=== PATIENT | female | born 1995 | race African-American/Black ===

== ENCOUNTER 2018-10-24 09:51 | Day surgery (SDC) | payer OTHER ==
[2018-10-04 12:48] LABS: HEMATOCRIT 39.1 % (36.0-47.0); HEMOGLOBIN 13.2 g/dL (12.0-15.5); MEAN CORPUSCULAR HEMOGLOBIN 30.2 pg (27.0-33.4); MEAN CORPUSCULAR HGB CONC 33.7 g/dL (32.0-36.0); MEAN CORPUSCULAR VOLUME 90 fl (80-97); PLATELET COUNT 226 10^3/uL (150-450); RED BLOOD COUNT 4.36 10^6/uL (3.72-5.28); RED CELL DISTRIBUTION WIDTH 14.5 % (11.5-14.0); WHITE BLOOD COUNT 8.1 10^3/uL (4.0-10.5)
[2018-10-04 12:48] LABS: APPEARANCE,URINE CLEAR; BILIRUBIN,URINE NEGATIVE (NEGATIVE); COLOR,URINE STRAW; GLUCOSE, URINE NEGATIVE (NEGATIVE); KETONES,URINE NEGATIVE (NEGATIVE); LEUKOCYTE ESTERASE,URINE MODERATE (NEGATIVE); NITRITE,URINE NEGATIVE (NEGATIVE); PROTEIN,URINE NEGATIVE (NEGATIVE); UROBILINOGEN,URINE NEGATIVE mg/dL (<2.0)
[~2018-10-24 09:51] MED LIST: LACTATED RINGERS 1000 ML IV PRN; LIDOCAINE 0.5% INJ-PF (5 MG/ML) 50 ML SDV SUBCUT PRN
[2018-10-24] MEDS ORDERED: BUPIVACAINE HCL 0.25 % INJ/PF (2.5 MG/1 ML) 30 ML VIAL ONE (10:28)
[2018-10-24] MEDS ORDERED: MIDAZOLAM 2 MG/2 ML INJ ONE (10:38)
[2018-10-24] MEDS ORDERED: FENTANYL CITRATE INJ/PF 250 MCG/5 ML AMPULE ONE (10:38)
[2018-10-24] MEDS ORDERED: HYDROMORPHONE HCL INJ/PF 2 MG/ML AMPULE ONE (10:38)
[2018-10-24] MEDS ORDERED: PROPOFOL INJ 200 MG/20 ML VIAL IV ONE (10:39)
[2018-10-24] MEDS ORDERED: MORPHINE SULFATE 10 MG/ML INJ IV PRN (11:27)
[2018-10-24] MEDS ORDERED: DIPHENHYDRAMINE HCL 50 MG/ML VIAL IV PRN (11:27)
[2018-10-24] MEDS ORDERED: PROMETHAZINE HCL INJ 25 MG/1 ML VIAL IV PRN (11:27)
[2018-10-24] MEDS ORDERED: MEPERIDINE HCL/PF INJ 25 MG/1 ML DISP.SYRIN IV PRN (11:27)
[2018-10-24] MEDS ORDERED: FENTANYL CITRATE INJ/PF 100 MCG/2 ML AMPUL IV PRN ×3 (11:27)
--- NOTE | 2018-10-24 12:29 | OPERATIVE REPORT E ---
Operative Report NAME: YINA LUDWIG : 1995 AGE: 23Y DATE OF SURGERY: 10/24/2018 ROOM: PREOPERATIVE DIAGNOSIS: ENDOMETRIOSIS. POSTOPERATIVE DIAGNOSIS: ENDOMETRIOSIS. OPERATION: Diagnostic laparoscopy with excision and fulguration of endometriosis and pelvic biopsies. SURGEON: TAWANNA LUA M.D. PRODUCTION LABORER: Yasmeen Carlson, first helper computer hardware technician. ANESTHESIA: Dr. Christopher Garcia with general. FINDINGS: Small amount of endometriosis on the left uterosacral ligament, minuscule powder burn marking noted just lateral of the right uterosacral ligament. COMPLICATIONS: None. ESTIMATED BLOOD LOSS: 10 mL TISSUE REMOVED OR ALTERED: Pelvic biopsy x2 from the left pelvic sidewall and uterosacral ligament. PROCEDURE: The patient was taken to the operating room, prepared and draped in a normal sterile fashion in the dorsal lithotomy position. Under sterile conditions an in-and out-cath was performed of approximately 20 mL of clear urine. A sterile speculum was then placed in the vagina. The cervix was grasped on the anterior lip with a single-tooth tenaculum and the cervix was prepped with Betadine. The Hulka clamp was then placed through the cervix for uterine manipulation. The tenaculum and speculum were then removed. Gloves were changed and attention was turned to the upper portion of the case where an umbilical skin incision was made to accommodate a 5 mm port and a Veress needle was introduced through these incisions. Peritoneal cavity placement was confirmed with free flow of sterile water through the Veress needle and the abdomen was then inflated with approximately 2 liters of CO2 gas. The Veress needle was then removed and the 5 mm port was then placed through this incision. The camera was introduced and the patient was placed in steep trendelenburg with the above findings noted. Under direct visualization, 2 more 5 mm ports were placed on either side of the umbilicus approximately 10 cm from the umbilicus. The atraumatic grasper was introduced and the bowel was swept away. The abdomen was inspected. The liver was normal. There were no lesions found on the bowel. The appendix was not visualized but there did not appear to be any other lesions noted. The bladder was inspected and found to be free of endometriosis lesions and the only lesions that were noted were these on the left uterosacral ligament. We then proceeded with excision of the biopsies. Atraumatic grasper was used and 1 biopsy was removed from the left uterosacral ligament. Another biopsy was a little bit tougher so the Nolvia was introduced in and the EndoSure's were used to excise the peritoneum from this site. These specimens were then removed from the field and the rest of the lesions were fulgurated with the EndoSure's without difficulty. Once we felt that we had fulgurated all of the visible lesions, the instruments were removed. The ovaries were reinspected and found to be normal. The right ovary did have a small follicular cyst on this but it was clear and benign in appearance with no evidence of being an endometrioma so this was left as is. The abdomen was reinspected and no further lesions were noted and no further pathology was noted. At this point, the case was concluded. The instruments were removed. The abdomen was deflated through the umbilical port. The trocars were all 3 removed and the skin was closed at the 3 sites using 4-0 Vicryl. Patient tolerated the procedure well. Sponge, lap, and needle counts were correct x2. The Hulka clamp was removed at the conclusion of the case and the patient was taken to recovery in stable condition. DICTATING PHYSICIAN: TAWANNA LUA M.D. [id number] PHY#: [id number] ID: [id number] JOB#: [id number] ACCT: [id number] cc:TAWANNA LUA M.D. >
[2018-10-24] MEDS ORDERED: MORPHINE SULFATE 10 MG/ML INJ IM PRN (13:06)
[2018-10-24] MEDS ORDERED: OXYCODONE-ACETAMINOPHEN 5-325 MG TABLET PO PRN ×2 (13:07→13:08)
[2018-10-24] MEDS ORDERED: IBUPROFEN 800 MG TABLET PO PRN (13:07)
[2018-10-24] MEDS ORDERED: ONDANSETRON HCL INJ/PF 4 MG/2 ML SDV ONE ×2 (13:37→19:11)
[2018-10-24 14:14] VITALS: BP 122/59
[2018-10-24] MEDS ORDERED: DEXAMETHASONE SOD PHOSPHATE INJ 4 MG/1 ML VIAL ONE (19:11)
[2018-10-24] MEDS ORDERED: ROCURONIUM BROMIDE INJ 50 MG/5 ML VIAL IV ONE (19:11)
[2018-10-24] MEDS ORDERED: NEOSTIGMINE METHYLSULFATE 10 MG/10 ML VIAL ONE (19:11)
[2018-10-24] MEDS ORDERED: GLYCOPYRROLATE 1 MG/5 ML SYRINGE ONE (19:11)
== END 2018-10-24 14:40 | disposition home or self-care (01) ==
LOC: OROUT 09:51
PROVIDERS: ATTEND Obstetrics & Gynecology
DX: N80.3 Endometriosis of pelvic peritoneum (principal); N94.10 Unspecified dyspareunia; Z32.02 Encounter for pregnancy test, result negative; R10.2 Pelvic and perineal pain; D64.9 Anemia, unspecified; J45.909 Unspecified asthma, uncomplicated; G51.0 Bell's palsy; M41.9 Scoliosis, unspecified; Z88.0 Allergy status to penicillin; Z88.2 Allergy status to sulfonamides
CPT/HCPCS: 86900; 86901; 36415 ×2; 86850; 85027; 81005; 81025; 88305 ×2; 58662; J2250; J3490 ×2; J1100; J3010; J2710; J2405; J2704; 840; J1170